=== PATIENT | female | born 1940 ===

== ENCOUNTER 2023-09-16 16:58 | Emergency (ER) | payer SELFPAY ==
[2023-09-16 17:22] VITALS: BP 152/48; PULSE 88; RESP 16; TEMP 36.6; O2SAT 100
--- NOTE | 2023-09-16 17:25 | ECG_ITS ---
Measurements Intervals [place] Rate: 72 P: 57 NE: 164 QRS: 21 QRSD: 76 T: 42 QT: 359 QTc: 393 Interpretive Statements SINUS RHYTHM ATRIAL PREMATURE COMPLEX BORDERLINE ECG NO PREVIOUS ECG AVAILABLE FOR COMPARISON Electronically Signed On 09-16-2023 19:22:17 [employer]ANK [employer]IV[employer] by Marek Rangel D.O.
== END 2023-09-16 23:33 | disposition left against medical advice (07) ==
LOC: ANHED 20:35
PROVIDERS: Emergency Provider Emergency Medicine
DX: R07.89 Other chest pain (principal)
CPT/HCPCS: 93005; 99199